=== PATIENT | male | born 1980 | race Asian ===

== ENCOUNTER 2016-05-17 02:45 | Inpatient (IN) | payer BC ==
[2016-05-17] VITALS (7 sets, daily range): BP systolic 130–139; BP diastolic 77–90
[~2016-05-17] VITALS: Ht 167.6 cm; Wt 63.0 kg
[~2016-05-17 02:45] MED LIST: KEFLEX500 MG ORAL; NKM
[2016-05-17] MEDS ORDERED: Famotidine 20 MG/ 2ML VIAL IVP ONE (03:15)
--- NOTE | 2016-05-17 03:28 | Emergency Room Report ---
History of Present Illness General Chief Complaint: Abdominal Pain Source: Patient Present Illness HPI Patient is a 36-year-old male who presented after increased epigastric and left- sided upper back pain. The patient reported having pain increased since 9 PM. The pain did radiate to his back. Patient had prior history of gastroesophageal reflux disease. He stated he took some antacid without any relief. The pain is sharp in nature. He denied any black or bloody stool he denied any vomiting or diarrhea. He reported having some nausea. He denied recent alcohol use. Allergies: Coded Allergies: No Known Allergies (Unverified , 10/22/15) Patient History Past Medical History: see triage record Reviewed Nursing Documentation: PMH: Agreed, PSxH: Agreed Nursing Documentation-PMH Hx Gastrointestinal Problems: Yes - inguinal hernia (left) Review of Systems All Other Systems: negative except mentioned in HPI Physical Exam Vital Signs Date Time Temp Pulse Resp B/P Pulse Ox O2 Delivery O2 Flow Rate FiO2 05/17/16 02:50 97.3 75 18 125/82 100 Room Air Sp02 EP Interpretation: reviewed, normal General Appearance: normal inspection, alert, GCS 15, non-toxic, mild distress Head: atraumatic ENT: normal ENT inspection, hearing grossly normal, normal voice Neck: normal inspection, full range of motion, supple, no bony tend Respiratory: normal inspection, lungs clear, normal breath sounds, no respiratory distress, no retraction, no wheezing Cardiovascular #1: regular rate, rhythm, no edema Gastrointestinal: normal inspection, normal bowel sounds, soft, no guarding, no hernia, tenderness - epigastric Genitourinary: no CVA tenderness Musculoskeletal: normal inspection, back normal, normal range of motion Neurologic: normal inspection, alert, oriented x3, responsive, head housekeeper III-XII nml as tested, speech normal Psychiatric: normal inspection, judgement/insight normal, mood/affect normal Skin: normal inspection, normal color, no rash Medical Decision Making Diagnostic Impression: Primary Impression: Abdominal pain Additional Impression: Cholecystitis ER Course Patient presented for abdominal pain.Patient presented for abdominal pain. Differential diagnoses included ischemic bowel, appendicitis, perforated viscus , abdominal aortic aneurysm, inferior myocardial infarction, viral gastroenteritis Because of complexity of patient's case laboratory testing and imaging studies were ordered.Patient was given IV pain medication. CT of the abdomen pelvis read by radiology showed a gallbladder stones with wall thickening consistent with cholecystitis. The patient was noted to have a normal white blood count. Patient was given morphine for pain as well as IV Pepcid. The patient started on IV hydration. Laboratory Tests Test 05/17/16 03:15 White Blood Count 10.3 K/UL (4.8-10.8) Red Blood Count 5.54 M/UL (4.70-6.10) Hemoglobin 17.8 G/DL (14.2-18.0) Hematocrit 51.0 % (42.0-52.0) Mean Corpuscular Volume 92 FL (80-99) Mean Corpuscular Hemoglobin 32.1 PG (27.0-31.0) H Mean Corpuscular Hemoglobin Concent 34.8 G/DL (32.0-36.0) Red Cell Distribution Width 10.8 % (11.6-14.8) L Platelet Count 295 K/UL (150-450) Mean Platelet Volume 6.5 FL (6.5-10.1) Neutrophils (%) (Auto) % (45.0-75.0) Lymphocytes (%) (Auto) % (20.0-45.0) Monocytes (%) (Auto) % (1.0-10.0) Eosinophils (%) (Auto) % (0.0-3.0) Basophils (%) (Auto) % (0.0-2.0) Urine Color Yellow Urine Appearance Clear Urine pH 8 (4.5-8.0) Urine Specific [place] 1.015 (1.005-1.035) Urine Protein Negative (NEGATIVE) Urine Glucose (UA) 1+ (NEGATIVE) H Urine Ketones 1+ (NEGATIVE) H Urine Occult Blood Negative (NEGATIVE) Urine Nitrite Negative (NEGATIVE) Urine Bilirubin Negative (NEGATIVE) Urine Urobilinogen Normal MG/DL (0.0-1.0) Urine Leukocyte Esterase Negative (NEGATIVE) Sodium Level 137 mEQ/L (135-145) Potassium Level 3.9 mEQ/L (3.4-4.9) Chloride Level 97 mEQ/L (98-107) L Carbon Dioxide Level 23 mEQ/L (20-30) Anion Gap 17 (5-15) H Blood Urea Nitrogen 12 mg/dL (7-23) Creatinine 0.8 mg/dL (0.7-1.2) Estimate Glomerular Filtration Rate > 60 mL/min (>60) Glucose Level 168 mg/dL (74-106) H Calcium Level 9.6 mg/dL (8.6-10.2) Total Bilirubin 0.6 mg/dL (0.0-1.2) Aspartate Amino Transferase (AST) 24 U/L (5-40) Alanine Aminotransferase (ALT) 38 U/L (3-41) Alkaline Phosphatase 84 U/L (40-129) Troponin I < 0.30 ng/mL (<=0.30) Total Protein 8.0 g/dL (6.6-8.7) Albumin 4.7 g/dL (3.5-5.2) Globulin 3.3 g/dL Albumin/Globulin Ratio 1.4 (1.0-2.7) Lipase 40 U/L (< 60) Urine Opiates Screen Negative (NEGATIVE) Urine Barbiturates Screen Negative (NEGATIVE) Phencyclidine (PCP) Screen Negative (NEGATIVE) Urine Amphetamines Screen Negative (NEGATIVE) Urine Benzodiazepines Screen Negative (NEGATIVE) Urine Cocaine Screen Negative (NEGATIVE) Urine Marijuana (THC) Screen Negative (NEGATIVE) EKG Diagnostic Results Rate: normal - 75 Rhythm: NSR ST Segments: no acute changes Last Vital Signs Date Time Temp Pulse Resp B/P Pulse Ox O2 Delivery O2 Flow Rate FiO2 05/17/16 02:50 97.3 75 18 125/82 100 Room Air Status: unchanged Disposition: ADMITTED INPATIENT Condition: Kyrie Lucas May 17, 2016 03:28
[2016-05-17 03:38] LABS: APPEARANCE,URINE CLEAR; KETONES,URINE 1+ (NEGATIVE); LEUKOCYTE ESTERASE ,URINE NEGATIVE (NEGATIVE); NITRITE,URINE NEGATIVE (NEGATIVE); PH,URINE 8 (4.5-8.0); PROTEIN,URINE NEGATIVE (NEGATIVE); UROBILINOGEN,URINE NORMAL MG/DL (0.0-1.0)
[2016-05-17 03:41] LABS: MEAN CORPUSCULAR HEMOGLOBIN 32.1 PG (27.0-31.0); MEAN CORPUSCULAR HGB CONC 34.8 G/DL (32.0-36.0); MEAN CORPUSCULAR VOLUME 92 FL (80-99); MEAN PLATELET VOLUME 6.5 FL (6.5-10.1); PLATELET COUNT 295 K/UL (150-450); RED BLOOD COUNT 5.54 M/UL (4.70-6.10); RED CELL DISTRIBUTION WIDTH 10.8 % (11.6-14.8); WHITE BLOOD COUNT 10.3 K/UL (4.8-10.8)
[2016-05-17 03:48] LABS: TROPONIN I < 0.30 ng/mL (<=0.30)
[2016-05-17 03:52] LABS: ALANINE AMINOTRANSFERASE 38 U/L (3-41); ALBUMIN/GLOBULIN RATIO 1.4 (1.0-2.7); ANION GAP 17 (5-15); ASPARTATE AMINO TRANSFERASE 24 U/L (5-40); CALCIUM 9.6 mg/dL (8.6-10.2); CARBON DIOXIDE 23 mEQ/L (20-30); CHLORIDE 97 mEQ/L (98-107); CREATININE 0.8 mg/dL (0.7-1.2); GLOMERULAR FILTRATION RATE > 60 mL/min (>60); HEMOLYSIS 8; LIPASE 40 U/L (< 60); POTASSIUM 3.9 mEQ/L (3.4-4.9); SODIUM 137 mEQ/L (135-145)
[2016-05-17] MEDS ORDERED: Morphine Sulfate 4mg/ml Inj IVP ONE (04:15)
[2016-05-17] MEDS ORDERED: cefTRIAXone 1 GM in NS 55 ML IVPB ONE (05:45)
[2016-05-17] MEDS ORDERED: metroNIDAZOLE 500mg 100 ML IVPB ONE (05:45)
[2016-05-17] MEDS ORDERED: Mylanta II UD 30ml ORAL PRN (06:45)
[2016-05-17] MEDS ORDERED: Miralax 17gm pkt ORAL PRN (06:45)
[2016-05-17] MEDS ORDERED: Nitroglycerin Subl 0.4mg tab (Bottle Of 25) SL PRN (06:45)
[2016-05-17] MEDS ORDERED: D5 1/2NS 1,000 ML IV SCH (08:00)
[2016-05-17] MEDS: Heparin 5000 units/ml inj SUBQ SCH ×2 (09:00→21:04)
--- NOTE | 2016-05-17 09:07 | Diagnostic Imaging Report ---
Indication: Abdominal pain Technique: CT of the abdomen and pelvis utilizing automated exposure control with intravenous contrast. Venous scanning performed. CT dose: Total DLP 578 mGycm; CTDI vol 13.2 mGy Comparison: None Findings: Liver, adrenal glands, spleen and pancreas are unremarkable. Gallstones are present with gallbladder wall thickening. There is a tiny right renal cyst. The small bowel loops are normal in caliber. The appendix is normal. There is no free intraperitoneal fluid or air. Abdominal aorta is normal in caliber. There is no bulky adenopathy. Osseous structures demonstrate no acute abnormality. Impression: Cholelithiasis with gallbladder wall thickening. Correlation recommended for cholecystitis. Tiny right renal cyst. Normal appendix. The CT scanner at [facility] is accredited by the [employer] and the scans are performed using protocols designed to limit radiation exposure to as low as reasonably achievable to attain images of sufficient resolution adequate for diagnostic evaluation.
[2016-05-17 11:29] LABS: INR 1.1 (0.9-1.1); PROTHROMBIN TIME 10.8 SEC (9.30-11.50)
--- NOTE | 2016-05-17 12:29 | General Progress Note ---
Progress Note Progress Note Chart reviewed, pt examined, consult dictated. Impression: cholelithiasis with thickening of gb wall, normal LFTs and CBC. We will obtain an abdominal ultrasound and HIDA scan today. Parish Amato MD May 17, 2016 12:29
--- NOTE | 2016-05-17 12:58 | History and Physical ---
History of Present Illness General Date patient seen: May 17, 2016 Time patient seen: 12:30 Reason for Hospitalization: Abdominal Pain Present Illness HPI 36 y/old male presented with abdominal pain, started last nigth, get worse, pain radiated to the back, mainly concentrated in epigastric area, 7/10 on a scale 1 to 10, no prior episodes in the past + associated nausea, no vomiting no diarrhea denies hematochezia, melena, hematemesis denies fever, chills denies trauma or injury to the abdomen CT A/P done in ER and revealed cholelithiasis with gallbladder wall thickening. workup in ER revealed no leukocytosis, stable LFT patient was admitted for further workup Allergies: Coded Allergies: No Known Allergies (Unverified , 10/22/15) Medication History Scheduled Cephalexin* (Keflex*), 500 MG ORAL Q6H No Known Medications* (NKM - No Known Medications*), 0 ., (Reported) Patient History History Provided By: Patient Healthcare decision maker Resuscitation status Advanced Directive on File Past Medical/Surgical History Past Medical/Surgical History: (1) Cellulitis and abscess of finger, unspecified Review of Systems Constitutional: Reports: no symptoms Eye: Reports: no symptoms ENT: Reports: no symptoms Respiratory: Reports: no symptoms Cardiovascular: Reports: no symptoms Gastrointestinal: Reports: see HPI Genitourinary: Reports: other - hx of R inguinal hernia repair, + L inguinal hernia, no surgery planned yet Musculoskeletal: Reports: no symptoms Skin: Reports: no symptoms Psychiatric: Reports: no symptoms Neurological: Reports: no symptoms Endocrine: Reports: no symptoms Hematologic/Lymphatic: Reports: no symptoms Physical Exam General Appearance: WD/WN, no apparent distress, alert Lines, tubes and drains: peripheral HEENT: normocephalic, atraumatic, anicteric, mucous membranes moist Neck: non-tender, supple, normal inspection Respiratory/Chest: lungs clear, no respiratory distress, no accessory muscle use Cardiovascular/Chest: normal peripheral pulses, normal rate, regular rhythm, no JVD Abdomen: normal bowel sounds, non tender, soft Extremities: normal range of motion, non-tender, normal inspection, no calf tenderness Skin Exam: normal pigmentation, warm/dry Neurologic: secretary bookkeeper II-XII grossly normal, no motor/sensory deficits, alert, oriented x 3, responsive, normal mood/affect Musculoskeletal: normal muscle bulk Last 24 Hour Vital Signs Date Time Temp Pulse Resp B/P Pulse Ox O2 Delivery O2 Flow Rate FiO2 05/17/16 09:27 98.4 85 18 134/81 100 Room Air 05/17/16 08:46 98.4 85 18 134/81 100 Room Air 05/17/16 06:38 98.4 87 18 130/78 100 Room Air 05/17/16 05:30 98.0 85 16 131/77 100 Room Air 05/17/16 04:54 97.3 05/17/16 03:04 97.3 77 24 139/87 100 Room Air 05/17/16 02:50 97.3 75 18 125/82 100 Room Air Intake and Output 05/16/16 05/17/16 19:00 07:00 Intake Total 1055 ml Balance 1055 ml Intake IV Total 1055 ml # Voids 1 Laboratory Tests Test 05/17/16 03:15 05/17/16 10:45 White Blood Count 10.3 K/UL (4.8-10.8) Red Blood Count 5.54 M/UL (4.70-6.10) Hemoglobin 17.8 G/DL (14.2-18.0) Hematocrit 51.0 % (42.0-52.0) Mean Corpuscular Volume 92 FL (80-99) Mean Corpuscular Hemoglobin 32.1 PG (27.0-31.0) H Mean Corpuscular Hemoglobin Concent 34.8 G/DL (32.0-36.0) Red Cell Distribution Width 10.8 % (11.6-14.8) L Platelet Count 295 K/UL (150-450) Mean Platelet Volume 6.5 FL (6.5-10.1) Neutrophils (%) (Auto) % (45.0-75.0) Lymphocytes (%) (Auto) % (20.0-45.0) Monocytes (%) (Auto) % (1.0-10.0) Eosinophils (%) (Auto) % (0.0-3.0) Basophils (%) (Auto) % (0.0-2.0) Urine Color Yellow Urine Appearance Clear Urine pH 8 (4.5-8.0) Urine Specific [place] 1.015 (1.005-1.035) Urine Protein Negative (NEGATIVE) Urine Glucose (UA) 1+ (NEGATIVE) H Urine Ketones 1+ (NEGATIVE) H Urine Occult Blood Negative (NEGATIVE) Urine Nitrite Negative (NEGATIVE) Urine Bilirubin Negative (NEGATIVE) Urine Urobilinogen Normal MG/DL (0.0-1.0) Urine Leukocyte Esterase Negative (NEGATIVE) Sodium Level 137 mEQ/L (135-145) Potassium Level 3.9 mEQ/L (3.4-4.9) Chloride Level 97 mEQ/L (98-107) L Carbon Dioxide Level 23 mEQ/L (20-30) Anion Gap 17 (5-15) H Blood Urea Nitrogen 12 mg/dL (7-23) Creatinine 0.8 mg/dL (0.7-1.2) Estimat Glomerular Filtration Rate > 60 mL/min (>60) Glucose Level 168 mg/dL (74-106) H Calcium Level 9.6 mg/dL (8.6-10.2) Total Bilirubin 0.6 mg/dL (0.0-1.2) Aspartate Amino Transf (AST/SGOT) 24 U/L (5-40) Alanine Aminotransferase (ALT/SGPT) 38 U/L (3-41) Alkaline Phosphatase 84 U/L (40-129) Troponin I < 0.30 ng/mL (<=0.30) Total Protein 8.0 g/dL (6.6-8.7) Albumin 4.7 g/dL (3.5-5.2) Globulin 3.3 g/dL Albumin/Globulin Ratio 1.4 (1.0-2.7) Lipase 40 U/L (< 60) Urine Opiates Screen Negative (NEGATIVE) Urine Barbiturates Screen Negative (NEGATIVE) Phencyclidine (PCP) Screen Negative (NEGATIVE) Urine Amphetamines Screen Negative (NEGATIVE) Urine Benzodiazepines Screen Negative (NEGATIVE) Urine Cocaine Screen Negative (NEGATIVE) Urine Marijuana (THC) Screen Negative (NEGATIVE) Prothrombin Time 10.8 SEC (9.30-11.50) Prothromb Time International Ratio 1.1 (0.9-1.1) Activated Partial Thromboplast Time 29 SEC (23-33) Height (Feet): 5 Height (Inches): 8.00 Weight (Pounds): 140 Medications Current Medications Medications (Trade) Dose Ordered Sig/[place] Route PRN Reason Start Time Stop Time Status Last Admin Dose Admin Acetaminophen (Tylenol) 650 mg Q4H PRN ORAL fever 05/17/16 06:45 06/16/16 06:44 Al Hydroxide/Mg Hydroxide (Mylanta II) 30 ml Q6H PRN ORAL dyspepsia 05/17/16 06:45 06/16/16 06:44 Dextrose STAT PRN IV Hypoglycemia 05/17/16 06:45 06/16/16 06:44 Dextrose/Sodium Chloride (D5 0.45% NS) 1,000 ml @ 75 mls/hr [id number] IV 05/17/16 08:00 06/16/16 07:59 05/17/16 11:42 Diphenhydramine HCl (Benadryl) 25 mg Q6H PRN ORAL Itching/Pruritis 05/17/16 06:45 06/16/16 06:44 Heparin Sodium (Porcine) (Heparin 5000 units/ml) 5,000 units EVERY 12 HOURS SUBQ 05/17/16 09:00 06/16/16 08:59 Morphine Sulfate (Morphine Sulfate) 2 mg Q4H PRN IVP severe Pain (Pain Scale 7-10) 05/17/16 06:45 05/24/16 06:44 Nitroglycerin (Ntg) 0.4 mg Q5M X 3 DOSES PRN SL Prn Chest Pain 05/17/16 06:45 06/16/16 06:44 Ondansetron HCl (Zofran) 4 mg Q6H PRN IVP Nausea & Vomiting 05/17/16 06:45 06/16/16 06:44 Piperacillin Sod/ Tazobactam Sod/ Sodium Chloride (Zosyn/Sodium Chloride) 110 ml @ 27.5 mls/hr EVERY 8 HOURS IVPB 05/17/16 14:00 05/24/16 13:59 Polyethylene Glycol (Miralax) 17 gm HSPRN PRN ORAL Constipation 05/17/16 06:45 06/16/16 06:44 Temazepam (Restoril) 15 mg HSPRN PRN ORAL Insomnia 05/17/16 06:45 05/24/16 06:44 Assessment/Plan Assessment/Plan ASSESSMENT Cholelithiasis Gallbladder wall thickening. r/o cholecystitis abdominal pain PLAN OF CARE MS floor IVF NPO CT A/P consistent with cholelithiasis with gallbladder wall thickening. surgery consult appreciated per surgery - abdominal US and HIDA scan empiric abx LFT, stable , no leucocytosis pain controlled no nausea DVT , GI prophylaxis case discussed and evaluated by supervising physician Mahad (Ange),Georgina KINGSLEY May 17, 2016 12:58
[2016-05-17] MEDS: Piperacillin/Tazobactam 3.375 GM in NS 110 ML IVPB SCH ×2 (15:04→21:16)
[2016-05-17] MEDS: Morphine Sulfate 2mg/ml Inj IVP PRN (20:48)
--- NOTE | 2016-05-17 21:57 | Consultation ---
DATE OF CONSULTATION: 05/17/2016 SURGICAL CONSULTATION REASON FOR CONSULTATION: Abdominal pain, gallstones. HISTORY OF PRESENT ILLNESS: This 36-year-old, [place] male developed problems with upper abdominal pain last night at 9 p.m. The pain was accompanied by nausea. He denied any symptoms of fever, chills, or diarrhea. He denied any similar pain episodes in the past. A CT scan of the abdomen taken in the emergency room revealed some thickening of the gallbladder wall along with gallstones. PAST MEDICAL HISTORY: None. PAST SURGICAL HISTORY: Previous surgery - right inguinal hernia repair at age 26. The patient was told recently that he has a left inguinal hernia as well. ALLERGIES: None known. MEDICATIONS: Multivitamins and fish oil. SOCIAL HISTORY: Tobacco, none. Alcohol, none. Occupation, RN. FAMILY HISTORY: The patient's father was diabetic and had gallstones. The patient's mother has hypertension. REVIEW OF SYSTEMS: Essentially negative. There is no history of asthma or angina. He denies any history of hepatitis. PHYSICAL EXAMINATION: GENERAL: A well-developed, well-nourished, slender, male, in no acute distress. VITAL SIGNS: Temperature 98.4, blood pressure 134/81, pulse 85, respirations 18. HEENT: Normocephalic. Pupils are equal and reactive to light. There was no scleral icterus. NECK: Supple without adenopathy. LUNGS: Clear. HEART: Regular rhythm without murmurs or gallops. ABDOMEN: Soft. There were no palpable masses. There was no tenderness. There is a healed right inguinal scar. EXTREMITIES: No clubbing, cyanosis, or edema. Peripheral pulses are intact. LABORATORY STUDIES: CBC showed a white blood count of 10,300, hemoglobin 17.8 g%, hematocrit 51%, and platelet count 295,000. Clinical chemistry showed a sodium of 137, potassium 3.9, chloride 97, bicarbonate 23, BUN 12, creatinine 0.8, glucose 168 total bilirubin 0.6, SGOT 38, SGPT 24, alkaline phosphatase 84, and lipase is normal at 40. Coagulation studies showed a prothrombin time of 10.8 seconds with an INR of 1.1 and PTT 29. Urinalysis was negative. CT scan of the abdomen showed gallstones with gallbladder wall thickening. The appendix is normal. IMPRESSION: Recent abdominal pain. Cholelithiasis on CT scan with possible thickening of the gallbladder wall, rule out cholecystitis. PLAN: We will obtain an ultrasound of the abdomen as well as a HIDA scan. If the HIDA does not visualize the gallbladder, we will proceed with a laparoscopic cholecystectomy during this hospitalization. Parish Amato M.D. DR: ELIJAH JOB#: [id number] CC:
[2016-05-17] MEDS: D5 1/2NS 1,000 ML IV SCH (22:46)
[2016-05-18] VITALS: BP 135/86
[2016-05-18] MEDS: D5 1/2NS 1,000 ML IV SCH ×3 (01:05→21:24)
[2016-05-18 04:00] VITALS: BP 118/75
[2016-05-18] MEDS: Piperacillin/Tazobactam 3.375 GM in NS 110 ML IVPB SCH ×3 (06:10→21:40)
[2016-05-18 08:00] VITALS: BP 126/81
[2016-05-18] MEDS ORDERED: D5 1/2NS 1,000 ML IV SCH (08:00)
[2016-05-18 08:06] LABS: BASOPHILS % (AUTO) 1.1 % (0.0-2.0); EOSINOPHILS % (AUTO) 1.1 % (0.0-3.0); LYMPHOCYTES % (AUTO) 15.9 % (20.0-45.0); MEAN CORPUSCULAR HEMOGLOBIN 32.4 PG (27.0-31.0); MEAN CORPUSCULAR HGB CONC 33.9 G/DL (32.0-36.0); MEAN CORPUSCULAR VOLUME 96 FL (80-99); MONOCYTES % (AUTO) 9.4 % (1.0-10.0); NEUTROPHILS % (AUTO) 72.5 % (45.0-75.0); PLATELET COUNT 232 K/UL (150-450); RED BLOOD COUNT 4.83 M/UL (4.70-6.10); RED CELL DISTRIBUTION WIDTH 10.8 % (11.6-14.8); WHITE BLOOD COUNT 9.7 K/UL (4.8-10.8)
[2016-05-18 08:51] LABS: ALANINE AMINOTRANSFERASE 29 U/L (3-41); ALBUMIN/GLOBULIN RATIO 1.3 (1.0-2.7); AMYLASE 89 U/L (10-110); ANION GAP 14 (5-15); ASPARTATE AMINO TRANSFERASE 20 U/L (5-40); CARBON DIOXIDE 23 mEQ/L (20-30); CHLORIDE 102 mEQ/L (98-107); CREATININE 0.9 mg/dL (0.7-1.2); GLOMERULAR FILTRATION RATE > 60 mL/min (>60); LIPASE 25 U/L (< 60); SODIUM 139 mEQ/L (135-145); TOTAL PROTEIN 6.9 g/dL (6.6-8.7)
[2016-05-18 08:52] LABS: HEMOLYSIS 5
[2016-05-18] MEDS: Heparin 5000 units/ml inj SUBQ SCH ×2 (09:00→21:00)
--- NOTE | 2016-05-18 09:00 | Diagnostic Imaging Report ---
Indication: Abdominal pain Technique: Ultrasound of the abdomen. Comparison: CT abdomen and pelvis from earlier the same day Findings: The pancreas is incompletely visualized. Visualized portions are unremarkable. There is mild increased echogenicity of the liver. No focal liver lesions are identified. Visualized portions of the main portal vein and the hepatic veins are grossly unremarkable although incompletely evaluated. Gallstones are present. Gallbladder wall is thickened measuring 1.1 cm with comet tail artifact. Common bile duct measures 6 mm. Bilateral kidneys demonstrate normal echogenicity. Right renal cyst measures 0.9 cm. There is no hydronephrosis. No echogenic renal stones are identified. The spleen is normal in size and echogenicity. The visualized aorta is normal in caliber. Visualized portions of the inferior vena cava are unremarkable. Impression: Cholelithiasis with gallbladder wall thickening measuring 1.1 cm. Comet tail artifact of the gallbladder wall. Adenomyomatosis could have this appearance. Cholecystitis not excluded. Neoplasm considered unlikely but not excluded. Right renal cyst. Mild fatty infiltration of the liver.
--- NOTE | 2016-05-18 09:40 | Pulmonology Progress Note ---
Assessment/Plan Assessment/Plan ASSESSMENT Cholelithiasis Gallbladder wall thickening. r/o cholecystitis abdominal pain PLAN OF CARE MS floor IVF NPO CT A/P consistent with cholelithiasis with gallbladder wall thickening. surgery consult appreciated per surgery - abdominal US and HIDA scan done Abd US - Cholelithiasis with gallbladder wall thickening measuring 1.1 cm. Cholecystitis not excluded. HIDA results pending empiric abx LFT, stable , no leucocytosis pain controlled no nausea DVT , GI prophylaxis depending on the results of HIDA if no visualization of GB, then lap chon if HIDA negative, then will dc case discussed and evaluated by supervising physician Subjective Allergies: Coded Allergies: No Known Allergies (Unverified , 10/22/15) Subjective feeling better no abdominal pain, no n/v/ seen and evaluated by surgery LFT and bili stable, no leukocytosis, afebrile Objective Last 24 Hour Vital Signs Date Time Temp Pulse Resp B/P Pulse Ox O2 Delivery O2 Flow Rate FiO2 05/18/16 04:00 98.4 77 21 118/75 100 Room Air 05/18/16 00:00 98.2 72 19 135/86 98 Room Air 05/17/16 21:18 97.7 05/17/16 20:00 97.7 88 15 136/90 97 Room Air 05/17/16 16:01 95.5 76 14 131/80 98 Room Air 05/17/16 12:00 96.0 85 16 133/78 98 Room Air Intake and Output 05/17/16 05/18/16 19:00 07:00 Intake Total 110.0 ml 957.5 ml Output Total 500 ml Balance 110.0 ml 457.5 ml Intake IV Total 110.0 ml 957.5 ml Output Urine Total 500 ml # Voids 4 Objective General Appearance: WD/WN, no apparent distress, alert Lines, tubes and drains: peripheral HEENT: normocephalic, atraumatic, anicteric, mucous membranes moist Neck: non-tender, supple, normal inspection Respiratory/Chest: lungs clear, no respiratory distress, no accessory muscle use Cardiovascular/Chest: normal peripheral pulses, normal rate, regular rhythm, no JVD Abdomen: normal bowel sounds, non tender, soft Extremities: normal range of motion, non-tender, normal inspection, no calf tenderness Skin Exam: normal pigmentation, warm/dry Neurologic: route manager II-XII grossly normal, no motor/sensory deficits, alert, oriented x 3, responsive, normal mood/affect Musculoskeletal: normal muscle bulk Laboratory Tests 05/17/16 10:45: Prothrombin Time 10.8, Prothromb Time International Ratio 1.1, Activated Partial Thromboplast Time 29 05/18/16 06:45: Activated Partial Thromboplast Time 31, White Blood Count 9.7, Red Blood Count 4.83, Hemoglobin 15.7, Hematocrit 46.2, Mean Corpuscular Volume 96, Mean Corpuscular Hemoglobin 32.4H, Mean Corpuscular Hemoglobin Concent 33.9, Red Cell Distribution Width 10.8L, Platelet Count 232, Mean Platelet Volume 6.0L, Neutrophils (%) (Auto) 72.5, Lymphocytes (%) (Auto) 15.9L, Monocytes (%) (Auto) 9.4, Eosinophils (%) (Auto) 1.1, Basophils (%) (Auto) 1.1, Sodium Level 139, Potassium Level 4.0, Chloride Level 102, Carbon Dioxide Level 23, Anion Gap 14, Blood Urea Nitrogen 6L, Creatinine 0.9, Estimat Glomerular Filtration Rate > 60 , Glucose Level 125H, Calcium Level 9.0, Total Bilirubin 1.0, Aspartate Amino Transf (AST/SGOT) 20, Alanine Aminotransferase (ALT/SGPT) 29, Alkaline Phosphatase 58, Total Protein 6.9, Albumin 3.9, Globulin 3.0, Albumin/Globulin Ratio 1.3, Amylase Level 89, Lipase 25 Current Medications Medications (Trade) Dose Ordered Sig/[place] Route PRN Reason Start Time Stop Time Status Last Admin Dose Admin Acetaminophen (Tylenol) 650 mg Q4H PRN ORAL fever 05/17/16 06:45 06/16/16 06:44 Al Hydroxide/Mg Hydroxide (Mylanta II) 30 ml Q6H PRN ORAL dyspepsia 05/17/16 06:45 06/16/16 06:44 Dextrose STAT PRN IV Hypoglycemia 05/17/16 06:45 06/16/16 06:44 Dextrose/Sodium Chloride (D5 0.45% NS) 1,000 ml @ 100 mls/hr Q10H IV 05/17/16 22:45 06/16/16 22:44 05/18/16 01:05 Diphenhydramine HCl (Benadryl) 25 mg Q6H PRN ORAL Itching/Pruritis 05/17/16 06:45 06/16/16 06:44 Heparin Sodium (Porcine) (Heparin 5000 units/ml) 5,000 units EVERY 12 HOURS SUBQ 05/17/16 09:00 06/16/16 08:59 05/17/16 21:04 Morphine Sulfate (Morphine Sulfate) 2 mg Q4H PRN IVP severe Pain (Pain Scale 7-10) 05/17/16 06:45 05/24/16 06:44 05/17/16 20:48 Nitroglycerin (Ntg) 0.4 mg Q5M X 3 DOSES PRN SL Prn Chest Pain 05/17/16 06:45 06/16/16 06:44 Ondansetron HCl (Zofran) 4 mg Q6H PRN IVP Nausea & Vomiting 05/17/16 06:45 06/16/16 06:44 Piperacillin Sod/ Tazobactam Sod 3.375 gm/Sodium Chloride 110 ml @ 27.5 mls/hr EVERY 8 HOURS IVPB 05/17/16 14:00 05/24/16 13:59 05/18/16 06:10 Polyethylene Glycol (Miralax) 17 gm HSPRN PRN ORAL Constipation 05/17/16 06:45 06/16/16 06:44 Temazepam (Restoril) 15 mg HSPRN PRN ORAL Insomnia 05/17/16 06:45 05/24/16 06:44 Mahad [facility] centerGeorgina Martínez NP May 18, 2016 09:40
--- NOTE | 2016-05-18 11:25 | General Progress Note ---
Progress Note Progress Note Afebrile. Pt reports less abdominal pain, no nausea. Abdomen is soft. The DAVID confirms the presence of gallstones with thickening of the fundus of the gallbladder, there is no ductal dilatation. The HIDA scan shows a patent cystic duct. LFTs and CBC are wnl. We will try to schedule the pt for a laparoscopic cholecystectomy tomorrow if feasible. We will start a clear liquid diet and hopefully advance to a low fat diet. Parish Amato MD May 18, 2016 11:25
[2016-05-18 12:00] VITALS: BP 141/86
[2016-05-18] MEDS ORDERED: D5 1/2NS 1000ml IV ONE (15:16)
[2016-05-18] MEDS ORDERED: Tubing IV Secondary IV ONE (15:16)
[2016-05-18 16:00] VITALS: BP 118/77
[2016-05-18 20:00] VITALS: BP 123/77
[2016-05-18] MEDS: Morphine Sulfate 2mg/ml Inj IVP PRN (21:27)
[2016-05-19] VITALS (16 sets, daily range): BP systolic 102–148; BP diastolic 71–98
--- NOTE | 2016-05-19 02:08 | Consultation ---
DATE OF CONSULTATION: 05/18/2016 CHIEF COMPLAINT: Abdominal pain. HISTORY OF PRESENT ILLNESS: This is a very pleasant 36-year-old male, who presented to the hospital with complaint of epigastric and left-sided abdominal pain radiating to the back. Since admission, the patient had multiple imaging studies suspicious for cholecystitis, although the patient did not have any leukocytosis and no obvious fever. Today, the patient states the pain has resolved. He does not have any other pain. PAST MEDICAL HISTORY: None. MEDICATIONS: None. ALLERGIES: None. SOCIAL HISTORY: The patient denies any tobacco, alcohol, or IV drug abuse. FAMILY HISTORY: Noncontributory. REVIEW OF SYSTEMS: A 10-point review of system was performed and pertinent positives in history of present illness. PHYSICAL EXAMINATION: VITAL SIGNS: Temperature 98.4 degrees, pulse 78, respirations 21, and blood pressure 118/75. HEENT: Normocephalic and atraumatic. Pale conjunctivae. Sclerae anitcteric. NECK: Supple. No lymphadenopathy. CARDIOVASCULAR: Regular rhythm. Plus S1 and S2. LUNGS: Clear breath sounds bilaterally. ABDOMEN: Bowel sounds are present. Soft and nontender. No rebound. No guarding. No peritoneal signs. EXTREMITIES: No cyanosis. No clubbing. No edema. LABORATORY DATA: White count is 9.7, hemoglobin 16, hematocrit 46, and platelet count is 232,000. Chem-7, sodium 139, potassium 4.0, BUN is 6, creatinine 0.9, and glucose is 125. IMAGING STUDIES: The patient had an abdominal ultrasound, which showed cholelithiasis with gallbladder wall thickening of 1.1 cm, adenomyomatosis could have this appearance, cholecystitis not excluded, neoplasm considered unlikely, but not excluded. The patient also had evidence of fatty infiltration of the liver. CT of the abdomen and pelvis showed cholelithiasis with gallbladder wall thickening. Correlation recommended for cholecystitis, tiny right renal cyst. The patient had normal appendix. HIDA scan was done, results are pending. ASSESSMENT AND PLAN: This is a 36-year-old male with abdominal pain without any fever or leukocytosis, evidence of gallstones, and gallbladder wall thickening. The patient's pending HIDA scan results to be documented. Also, the patient has been followed by surgeon. There is a questionable appendix and cholecystectomy. Our plan will be to see the patient if there is no plan for surgery today. Follow with the surgical recommendations. Willy Molina M.D. DR: TJ JOB#: [id number] CC:
[2016-05-19] MEDS: Piperacillin/Tazobactam 3.375 GM in NS 110 ML IVPB SCH ×3 (05:29→21:54)
[2016-05-19 07:33] LABS: BASOPHILS % (AUTO) 0.7 % (0.0-2.0); EOSINOPHILS % (AUTO) 3.2 % (0.0-3.0); LYMPHOCYTES % (AUTO) 19.8 % (20.0-45.0); MEAN CORPUSCULAR HEMOGLOBIN 34.6 PG (27.0-31.0); MEAN CORPUSCULAR VOLUME 96 FL (80-99); MEAN PLATELET VOLUME 5.6 FL (6.5-10.1); MONOCYTES % (AUTO) 11.5 % (1.0-10.0); NEUTROPHILS % (AUTO) 64.9 % (45.0-75.0); PLATELET COUNT 208 K/UL (150-450); RED BLOOD COUNT 4.52 M/UL (4.70-6.10); RED CELL DISTRIBUTION WIDTH 10.7 % (11.6-14.8); WHITE BLOOD COUNT 8.9 K/UL (4.8-10.8)
[2016-05-19] MEDS: D5 1/2NS 1,000 ML IV SCH ×2 (07:48→23:30)
[2016-05-19 08:00] LABS: ALANINE AMINOTRANSFERASE 28 U/L (3-41); ALBUMIN/GLOBULIN RATIO 1.3 (1.0-2.7); ANION GAP 11 (5-15); ASPARTATE AMINO TRANSFERASE 18 U/L (5-40); CALCIUM 9.1 mg/dL (8.6-10.2); CARBON DIOXIDE 28 mEQ/L (20-30); CHLORIDE 102 mEQ/L (98-107); CREATININE 0.9 mg/dL (0.7-1.2); GLOMERULAR FILTRATION RATE > 60 mL/min (>60); HEMOLYSIS 7; POTASSIUM 3.8 mEQ/L (3.4-4.9); SODIUM 141 mEQ/L (135-145)
[2016-05-19] MEDS: Heparin 5000 units/ml inj SUBQ SCH ×3 (09:00→22:00)
[2016-05-19] MEDS ORDERED: Bupivacaine w/Epi 0.25% 30ml Vial INJ ONE (10:12)
[2016-05-19] MEDS ORDERED: Isovue-M 300 INJ ONE (10:12)
--- NOTE | 2016-05-19 10:17 | Pre-Procedure Note/Attestation ---
Pre-Procedure Note/Attestation Complete Prior to Procedure Procedure Narrative: laproscopic cholecystectomy, possible open, possible cholangiogram Indications for Procedure Pre-Operative Diagnosis: acute cholecystitisi Attestation I attest that I discussed the nature of the procedure; its benefits; risks and complications; and alternatives (and the risks and benefits of such alternatives ), prior to the procedure, with the patient (or the patient's legal account executive sales representative). I attest that, if there was a reasonable possibility of needing a blood transfusion, the patient (or the patient's legal account executive sales representative) was given the [facility] standardized written summary, pursuant to the Dwight [place] Blood Safety Act ([place] Health and Safety Code # 1645, as amended). I attest that I re-evaluated the patient just prior to the surgery and that there has been no change in the patient's H&P, except as documented below:none RHONDA MASON May 19, 2016 10:17
[2016-05-19] MEDS ORDERED: Esmolol 100mg/10ml Inj ONE ×2 (10:40→11:00)
[2016-05-19] MEDS ORDERED: Propofol 10mg/ml 100ml btl IV ONE (10:40)
[2016-05-19] MEDS ORDERED: NS Irrig 1000ml ONE (10:40)
[2016-05-19] MEDS ORDERED: Sterile Water Irrig 1000ml IRRIG ONE (10:40)
[2016-05-19] MEDS ORDERED: LR 1000ml ONE (10:40)
[2016-05-19] MEDS ORDERED: Midazolam 2mg/2ml Inj ONE (10:40)
[2016-05-19] MEDS ORDERED: fentaNYL 100 mcg/2 mL IV ONE (10:40)
[2016-05-19] MEDS ORDERED: Zemuron 50mg/5ml Inj IV ONE (10:40)
--- NOTE | 2016-05-19 11:28 | Anethesia Preoperative Eval ---
Anesthesia Pre-op PMH/ROS General Date of Evaluation: May 19, 2016 Time of Evaluation: 10:40 Anesthesiologist: Jessi ASA Score: ASA 1 Mallampati Score Class I : Soft palate, uvula, fauces, pillars visible Class II: Soft palate, uvula, fauces visible Class III: Soft palate, base of uvula visible Class IV: Only hard plate visible Mallampati Classification: Class II Surgeon: Justyn Diagnosis: Cholecystitis Surgical Procedure: Lap Mercedes Family History: no anesthesia problems Allergies: Coded Allergies: No Known Allergies (Unverified , 10/22/15) Medications: see eMAR Past Medical History Cardiovascular: Denies: CAD, HTN, MD, arrhythmia, other, valve dz Pulmonary: Denies: COPD, JAY, asthma, other Gastrointestinal/Genitourinary: Denies: CRI, ESRD, GERD, other Neurologic/Psychiatric: Denies: CVA, TIA, dementia, depression/anxiety, other Endocrine: Denies: DM, hypothyroidism, other, steroids HEENT: Denies: [place] (L), [place] (R), cataract (L), cataract (R), glaucoma, other Hematology/Immune: Denies: DVT, anemia, bleeding disorder, other Musculoskeletal/Integumentary: Denies: DDD, DJD, OA, RA, edema, other PMH Narrative: Denies PSxH Narrative: Right IH Anesthesia Pre-op Phys. Exam Physician Exam Last Vital Signs Date Time Temp Pulse Resp B/P Pulse Ox O2 Delivery O2 Flow Rate FiO2 05/19/16 08:00 97.0 86 20 102/76 99 Room Air Constitutional: NAD Neurologic: CN 2-12 intact Cardiovascular: RRR, no M/R/G Gastrointestinal: S/NT/ND Airway Exam Mallampati Score: Class II MO: full ROM: full Teeth: intact Anesthesia Pre-op A/P Labs Hematology Test 05/19/16 05:25 White Blood Count 8.9 K/UL (4.8-10.8) Red Blood Count 4.52 M/UL (4.70-6.10) L Hemoglobin 15.7 G/DL (14.2-18.0) Hematocrit 43.5 % (42.0-52.0) Mean Corpuscular Volume 96 FL (80-99) Mean Corpuscular Hemoglobin 34.6 PG (27.0-31.0) H Mean Corpuscular Hemoglobin Concent 36.0 G/DL (32.0-36.0) Red Cell Distribution Width 10.7 % (11.6-14.8) L Platelet Count 208 K/UL (150-450) Mean Platelet Volume 5.6 FL (6.5-10.1) L Neutrophils (%) (Auto) 64.9 % (45.0-75.0) Lymphocytes (%) (Auto) 19.8 % (20.0-45.0) L Monocytes (%) (Auto) 11.5 % (1.0-10.0) H Eosinophils (%) (Auto) 3.2 % (0.0-3.0) H Basophils (%) (Auto) 0.7 % (0.0-2.0) Chemistry Test 05/19/16 05:25 Sodium Level 141 mEQ/L (135-145) Potassium Level 3.8 mEQ/L (3.4-4.9) Chloride Level 102 mEQ/L (98-107) Carbon Dioxide Level 28 mEQ/L (20-30) Anion Gap 11 (5-15) Blood Urea Nitrogen 5 mg/dL (7-23) L Creatinine 0.9 mg/dL (0.7-1.2) Estimat Glomerular Filtration Rate > 60 mL/min (>60) Glucose Level 122 mg/dL (74-106) H Calcium Level 9.1 mg/dL (8.6-10.2) Total Bilirubin 0.8 mg/dL (0.0-1.2) Aspartate Amino Transf (AST/SGOT) 18 U/L (5-40) Alanine Aminotransferase (ALT/SGPT) 28 U/L (3-41) Alkaline Phosphatase 61 U/L (40-129) Total Protein 7.0 g/dL (6.6-8.7) Albumin 4.0 g/dL (3.5-5.2) Globulin 3.0 g/dL Albumin/Globulin Ratio 1.3 (1.0-2.7) Risk Assessment & Plan Assessment: Healthy male with cholecystitis Plan: GETA Status Change Before Surgery: No Pre-Antibiotics Drug: Patient is on DIAMANTE Gusman M.D. May 19, 2016 11:28
[2016-05-19] MEDS ORDERED: Meperidine 25mg/ml Inj IV PRN (11:30)
[2016-05-19] MEDS ORDERED: LR 1000ml 1,000 ML IVLG SCH (11:30)
[2016-05-19] MEDS ORDERED: LORazepam Inj 2mg/ml 1ml IV PRN (11:30)
[2016-05-19] MEDS ORDERED: Hydromorphone 0.5mg/0.5ml inj IVP PRN ×2 (11:30→12:15)
--- NOTE | 2016-05-19 11:30 | Immediate Post-Op Evaluation ---
Immediate Post-Op Evalulation Immediate Post-Op Evalulation Procedure: Lap Mercedes Date of Evaluation: May 19, 2016 Time of Evaluation: 12:30 IV Fluids: 925 Estimated Blood Loss: 30 Blood Pressure Systolic: 141 Blood Pressure Diastolic: 90 Pulse Rate: 80 Respiratory Rate: 22 O2 Sat by Pulse Oximetry: 100 Temperature (Fahrenheit): 97.6 Pain Score (1-10): 0 Nausea: No Vomiting: No Complications No complication Patient Status: reacts, patent, extubated, none Hydration Status: adequate Drug: None. Patient is on Zosyn. DIAMANTE PAINTER M.D. May 19, 2016 11:30
[2016-05-19] MEDS ORDERED: Surgicel 4in x 8in TOPIC ONE (11:56)
--- NOTE | 2016-05-19 12:10 | Brief Operative Note ---
Immediate Post Operative Note Operative Note Pre-op Diagnosis: acute cholecystitisi Procedure: laparoscopic cholecystectomy Post-op Diagnosis: same Surgeon: Dilma Network Field Engineer: avril Anesthesiologist: jaspreet Anesthesia: general, local Specimen: yes Complications: none Condition: stable Estimated Blood Loss: minimal Drains: none Implant(s) used?: No RHONDA MASON May 19, 2016 12:10
[2016-05-19] MEDS ORDERED: Norco 5mg/325mg tab ORAL PRN (12:15)
--- NOTE | 2016-05-19 12:24 | GI Progress Note ---
Assessment/Plan Problems: (1) Abdominal pain ICD Codes: R10.9 - Unspecified abdominal pain SNOMED: 97418366, 76172080 (2) Cholecystitis ICD Codes: K81.9 - Cholecystitis, unspecified SNOMED: 94755932, 64174925 Status Narrative Discussed with Dr. Molina. Assessment/Plan surgical recs pt s/p lap chon pain mgmt diet per surgery ppi fu labs Objective Last 24 Hour Vital Signs Date Time Temp Pulse Resp B/P Pulse Ox O2 Delivery O2 Flow Rate FiO2 05/19/16 08:00 97.0 86 20 102/76 99 Room Air 05/19/16 04:00 97.9 76 18 119/78 100 Room Air 05/19/16 00:00 97.0 74 18 114/74 97 Room Air 05/18/16 20:00 97.9 90 22 123/77 95 Room Air 05/18/16 16:00 97.5 89 20 118/77 99 Room Air Intake and Output 05/18/16 05/19/16 19:00 07:00 Intake Total 677.5 ml 800 ml Output Total 500 ml Balance 677.5 ml 300 ml Intake IV Total 127.5 ml 800 ml Other 550 ml Output Urine Total 500 ml # Voids 1 Laboratory Tests Test 05/19/16 05:25 White Blood Count 8.9 K/UL (4.8-10.8) Red Blood Count 4.52 M/UL (4.70-6.10) L Hemoglobin 15.7 G/DL (14.2-18.0) Hematocrit 43.5 % (42.0-52.0) Mean Corpuscular Volume 96 FL (80-99) Mean Corpuscular Hemoglobin 34.6 PG (27.0-31.0) H Mean Corpuscular Hemoglobin Concent 36.0 G/DL (32.0-36.0) Red Cell Distribution Width 10.7 % (11.6-14.8) L Platelet Count 208 K/UL (150-450) Mean Platelet Volume 5.6 FL (6.5-10.1) L Neutrophils (%) (Auto) 64.9 % (45.0-75.0) Lymphocytes (%) (Auto) 19.8 % (20.0-45.0) L Monocytes (%) (Auto) 11.5 % (1.0-10.0) H Eosinophils (%) (Auto) 3.2 % (0.0-3.0) H Basophils (%) (Auto) 0.7 % (0.0-2.0) Sodium Level 141 mEQ/L (135-145) Potassium Level 3.8 mEQ/L (3.4-4.9) Chloride Level 102 mEQ/L (98-107) Carbon Dioxide Level 28 mEQ/L (20-30) Anion Gap 11 (5-15) Blood Urea Nitrogen 5 mg/dL (7-23) L Creatinine 0.9 mg/dL (0.7-1.2) Estimat Glomerular Filtration Rate > 60 mL/min (>60) Glucose Level 122 mg/dL (74-106) H Calcium Level 9.1 mg/dL (8.6-10.2) Total Bilirubin 0.8 mg/dL (0.0-1.2) Aspartate Amino Transf (AST/SGOT) 18 U/L (5-40) Alanine Aminotransferase (ALT/SGPT) 28 U/L (3-41) Alkaline Phosphatase 61 U/L (40-129) Total Protein 7.0 g/dL (6.6-8.7) Albumin 4.0 g/dL (3.5-5.2) Globulin 3.0 g/dL Albumin/Globulin Ratio 1.3 (1.0-2.7) Height (Feet): 5 Height (Inches): 6.00 Weight (Pounds): 139 Objective pt in surgery for lap chon Leisa Aleman N.P. May 19, 2016 12:23
--- NOTE | 2016-05-19 12:25 | 48 Hour Post Anesthesia Eval ---
Post Anesthesia Evaluation Procedure: Lap Mercedes Date of Evaluation: May 19, 2016 Time of Evaluation: 13:48 Blood Pressure Systolic: 138 0: 75 Pulse Rate: 80 Respiratory Rate: 17 O2 Sat by Pulse Oximetry: 99 Airway: patent Nausea: No Vomiting: No Pain Intensity: 1 Hydration Status: adequate Cardiopulmonary Status: Stable Mental Status/LOC: patient returned to baseline Follow-up Care/Observations: As per surgery Post-Anesthesia Complications: No anesthetic complication Follow-up care needed: N/A DIAMANTE PAINTER M.D. May 19, 2016 12:25
--- NOTE | 2016-05-19 17:51 | Pulmonology Progress Note ---
Assessment/Plan Assessment/Plan Assessment/Plan ASSESSMENT Cholelithiasis Gallbladder wall thickening. r/o cholecystitis abdominal pain PLAN OF CARE Pain management IVF NPO CT A/P consistent with cholelithiasis with gallbladder wall thickening. surgery consult abdominal US and HIDA scan done Abd US - Cholelithiasis with gallbladder wall thickening measuring 1.1 cm. Cholecystitis not excluded. HIDA results pending empiric abx Subjective ROS Limited/Unobtainable: No Gastrointestinal/Abdominal: Reports: bloating, nausea, vomiting Allergies: Coded Allergies: No Known Allergies (Unverified , 10/22/15) Objective Last 24 Hour Vital Signs Date Time Temp Pulse Resp B/P Pulse Ox O2 Delivery O2 Flow Rate FiO2 05/19/16 16:23 97.9 86 19 118/73 100 Nasal Cannula 2.0 05/19/16 13:51 80 17 99 05/19/16 13:41 97.8 79 15 128/81 100 Nasal Cannula 3.0 05/19/16 13:35 76 16 126/82 100 Nasal Cannula 3.0 05/19/16 13:32 97.6 05/19/16 13:32 97.6 05/19/16 13:30 89 22 123/80 100 Nasal Cannula 3.0 05/19/16 13:15 78 15 133/89 100 Nasal Cannula 3.0 05/19/16 13:10 81 18 125/85 100 Nasal Cannula 3.0 05/19/16 13:00 78 17 140/98 100 Nasal Cannula 3.0 05/19/16 12:45 85 19 146/89 100 Simple Mask 6.0 05/19/16 12:40 72 18 148/96 100 Simple Mask 6.0 05/19/16 12:30 73 19 141/91 100 Simple Mask 6.0 05/19/16 12:25 78 20 144/89 100 Simple Mask 6.0 05/19/16 12:23 80 22 100 05/19/16 12:20 97.6 81 24 141/90 100 Simple Mask 6.0 05/19/16 08:00 97.0 86 20 102/76 99 Room Air 05/19/16 04:00 97.9 76 18 119/78 100 Room Air 05/19/16 00:00 97.0 74 18 114/74 97 Room Air 05/18/16 20:00 97.9 90 22 123/77 95 Room Air Intake and Output 05/18/16 05/19/16 19:00 07:00 Intake Total 677.5 ml 800 ml Output Total 500 ml Balance 677.5 ml 300 ml Intake IV Total 127.5 ml 800 ml Other 550 ml Output Urine Total 500 ml # Voids 1 General Appearance: WD/WN HEENT: normocephalic, atraumatic, PERRL Respiratory/Chest: chest wall non-tender, decreased breath sounds, accessory muscle use Cardiovascular: regular rhythm, tachycardia Abdomen: hyperactive bowel sounds, distended, guarding, tender, rebound tenderness, mass Genitourinary: normal external genitalia Extremities: no cyanosis Skin: no rash, no lesions Neurologic/Psychiatric: fuel cell engineer II-XII grossly normal, no motor/sensory deficits Laboratory Tests 05/19/16 05:25: White Blood Count 8.9, Red Blood Count 4.52L, Hemoglobin 15.7, Hematocrit 43.5, Mean Corpuscular Volume 96, Mean Corpuscular Hemoglobin 34.6H, Mean Corpuscular Hemoglobin Concent 36.0, Red Cell Distribution Width 10.7L, Platelet Count 208, Mean Platelet Volume 5.6L, Neutrophils (%) (Auto) 64.9, Lymphocytes (%) (Auto) 19.8L, Monocytes (%) (Auto) 11.5H, Eosinophils (%) (Auto) 3.2H, Basophils (%) ( Auto) 0.7, Sodium Level 141, Potassium Level 3.8, Chloride Level 102, Carbon Dioxide Level 28, Anion Gap 11, Blood Urea Nitrogen 5L, Creatinine 0.9, Estimat Glomerular Filtration Rate > 60, Glucose Level 122H, Calcium Level 9.1, Total Bilirubin 0.8, Aspartate Amino Transf (AST/SGOT) 18, Alanine Aminotransferase ( ALT/SGPT) 28, Alkaline Phosphatase 61, Total Protein 7.0, Albumin 4.0, Globulin 3.0, Albumin/Globulin Ratio 1.3 Current Medications Medications (Trade) Dose Ordered Sig/[place] Route PRN Reason Start Time Stop Time Status Last Admin Dose Admin Acetaminophen (Tylenol) 650 mg Q4H PRN ORAL FEVER 05/19/16 12:15 06/18/16 12:14 Acetaminophen/ Hydrocodone Bitart ([place] 5/325) 1 tab Q4H PRN ORAL Moderate Pain (Pain Scale 4-6) 05/19/16 12:15 05/26/16 12:14 Al Hydroxide/Mg Hydroxide (Mylanta II) 30 ml Q6H PRN ORAL dyspepsia 05/17/16 06:45 06/16/16 06:44 Dextrose STAT PRN IV Hypoglycemia 05/17/16 06:45 06/16/16 06:44 Dextrose/Sodium Chloride (D5 0.45% NS) 1,000 ml @ 100 mls/hr Q10H IV 05/17/16 22:45 06/16/16 22:44 05/19/16 07:48 Diphenhydramine HCl (Benadryl) 25 mg Q6H PRN ORAL Itching/Pruritis 05/17/16 06:45 06/16/16 06:44 Heparin Sodium (Porcine) (Heparin 5000 units/ml) 5,000 units EVERY 8 HOURS SUBQ 05/19/16 16:30 06/18/16 16:29 Hydromorphone HCl (Dilaudid) 0.5 mg Q3H PRN IVP Pain Score 1-3 05/19/16 12:15 05/26/16 12:14 Hydromorphone HCl (Dilaudid) 1 mg Q3H PRN IVP pain score 4-6 05/19/16 12:15 05/26/16 12:14 Hydromorphone HCl (Dilaudid) 2 mg Q3H PRN IVP pain score 7-10 05/19/16 12:15 05/26/16 12:14 Nitroglycerin (Ntg) 0.4 mg Q5M X 3 DOSES PRN SL Prn Chest Pain 05/17/16 06:45 06/16/16 06:44 Ondansetron HCl (Zofran) 4 mg Q6H PRN IVP Nausea & Vomiting 05/19/16 12:15 06/18/16 12:14 Piperacillin Sod/ Tazobactam Sod 3.375 gm/Sodium Chloride 110 ml @ 27.5 mls/hr EVERY 8 HOURS IVPB 05/17/16 14:00 05/24/16 13:59 05/19/16 14:07 Polyethylene Glycol (Miralax) 17 gm HSPRN PRN ORAL Constipation 05/17/16 06:45 06/16/16 06:44 Temazepam (Restoril) 15 mg HSPRN PRN ORAL Insomnia 05/17/16 06:45 05/24/16 06:44 05/19/16 01:18 LAINE MORRISON May 19, 2016 17:50
[2016-05-19] MEDS: HYDROmorphone 1mg/ml Carpuject IVP PRN ×2 (18:19→22:13)
--- NOTE | 2016-05-19 19:07 | Cardiology Report ---
APPROVED REPORT EKG Measurement Heart [id number] Normal sinus rhythm Rightward axis Pulmonary disease pattern Abnormal ECG
[2016-05-20] VITALS: BP 106/69
[2016-05-20] MEDS: HYDROmorphone 1mg/ml Carpuject IVP PRN (03:24)
[2016-05-20] MEDS: Piperacillin/Tazobactam 3.375 GM in NS 110 ML IVPB SCH ×2 (04:51→13:26)
[2016-05-20] MEDS: Heparin 5000 units/ml inj SUBQ SCH ×2 (06:00→13:26)
[2016-05-20 07:22] LABS: BASOPHILS % (AUTO) 0.6 % (0.0-2.0); EOSINOPHILS % (AUTO) 1.4 % (0.0-3.0); LYMPHOCYTES % (AUTO) 28.6 % (20.0-45.0); MEAN CORPUSCULAR HEMOGLOBIN 32.7 PG (27.0-31.0); MEAN CORPUSCULAR HGB CONC 34.6 G/DL (32.0-36.0); MEAN CORPUSCULAR VOLUME 94 FL (80-99); MEAN PLATELET VOLUME 5.9 FL (6.5-10.1); MONOCYTES % (AUTO) 11.8 % (1.0-10.0); NEUTROPHILS % (AUTO) 57.5 % (45.0-75.0); PLATELET COUNT 202 K/UL (150-450); RED BLOOD COUNT 4.47 M/UL (4.70-6.10); RED CELL DISTRIBUTION WIDTH 10.8 % (11.6-14.8); WHITE BLOOD COUNT 6.9 K/UL (4.8-10.8)
[2016-05-20 07:43] LABS: ANION GAP 11 (5-15); CALCIUM 8.5 mg/dL (8.6-10.2); CARBON DIOXIDE 29 mEQ/L (20-30); CHLORIDE 98 mEQ/L (98-107); CREATININE 0.8 mg/dL (0.7-1.2); GLOMERULAR FILTRATION RATE > 60 mL/min (>60); HEMOLYSIS 5; POTASSIUM 3.6 mEQ/L (3.4-4.9); SODIUM 138 mEQ/L (135-145)
[2016-05-20 08:00] VITALS: BP 131/89
--- NOTE | 2016-05-20 11:27 | General Surgery Progress Note ---
General Surgery-Progress Note Subjective Day of Surgery: 05/19/2016 Procedure Performed lap chon Symptoms: improved, tolerating diet, voiding well, passing flatus Additional Comments no n/v/f/c. doing well. recovering. Objective Last 24 Hour Vital Signs Date Time Temp Pulse Resp B/P Pulse Ox O2 Delivery O2 Flow Rate FiO2 05/20/16 08:00 98.1 81 22 131/89 100 Room Air 05/20/16 00:00 97.0 80 18 106/69 97 Room Air 05/19/16 20:00 99.5 87 19 120/71 97 Room Air 05/19/16 16:23 97.9 86 19 118/73 100 Nasal Cannula 2.0 05/19/16 13:51 80 17 99 05/19/16 13:41 97.8 79 15 128/81 100 Nasal Cannula 3.0 05/19/16 13:35 76 16 126/82 100 Nasal Cannula 3.0 05/19/16 13:32 97.6 05/19/16 13:32 97.6 05/19/16 13:30 89 22 123/80 100 Nasal Cannula 3.0 05/19/16 13:15 78 15 133/89 100 Nasal Cannula 3.0 05/19/16 13:10 81 18 125/85 100 Nasal Cannula 3.0 05/19/16 13:00 78 17 140/98 100 Nasal Cannula 3.0 05/19/16 12:45 85 19 146/89 100 Simple Mask 6.0 05/19/16 12:40 72 18 148/96 100 Simple Mask 6.0 05/19/16 12:30 73 19 141/91 100 Simple Mask 6.0 05/19/16 12:25 78 20 144/89 100 Simple Mask 6.0 05/19/16 12:23 80 22 100 05/19/16 12:20 97.6 81 24 141/90 100 Simple Mask 6.0 I&O Intake and Output 05/19/16 05/20/16 19:00 07:00 Intake Total 2150 ml 327.5 ml Output Total 10 ml 600 ml Balance 2140 ml -272.5 ml IV Total 2150 ml 327.5 ml Output Urine Total 600 ml Estimated Blood Loss 10 ml Dressing: dry Wound: clean, dry Drains: none Cardiovascular: RSR Respiratory: clear Abdomen: soft, non-tender, present bowel sounds Extremities: no edema Laboratory Tests Test 05/20/16 05:15 White Blood Count 6.9 K/UL (4.8-10.8) Red Blood Count 4.47 M/UL (4.70-6.10) L Hemoglobin 14.6 G/DL (14.2-18.0) Hematocrit 42.1 % (42.0-52.0) Mean Corpuscular Volume 94 FL (80-99) Mean Corpuscular Hemoglobin 32.7 PG (27.0-31.0) H Mean Corpuscular Hemoglobin Concent 34.6 G/DL (32.0-36.0) Red Cell Distribution Width 10.8 % (11.6-14.8) L Platelet Count 202 K/UL (150-450) Mean Platelet Volume 5.9 FL (6.5-10.1) L Neutrophils (%) (Auto) 57.5 % (45.0-75.0) Lymphocytes (%) (Auto) 28.6 % (20.0-45.0) Monocytes (%) (Auto) 11.8 % (1.0-10.0) H Eosinophils (%) (Auto) 1.4 % (0.0-3.0) Basophils (%) (Auto) 0.6 % (0.0-2.0) Sodium Level 138 mEQ/L (135-145) Potassium Level 3.6 mEQ/L (3.4-4.9) Chloride Level 98 mEQ/L (98-107) Carbon Dioxide Level 29 mEQ/L (20-30) Anion Gap 11 (5-15) Blood Urea Nitrogen 4 mg/dL (7-23) L Creatinine 0.8 mg/dL (0.7-1.2) Estimat Glomerular Filtration Rate > 60 mL/min (>60) Glucose Level 116 mg/dL (74-106) H Calcium Level 8.5 mg/dL (8.6-10.2) L Assessment Post-op Diagnosis POD #1 s/p lap chon for cholecystitis. afebrile, HD stable, recovering well. labs normal Plan Additional Comments okay to d/c home today from surgical standpoint diet as tolerated activity as tolerated - no lifting > 15lbs for 4 weeks okay to shower - no submersing in water for 2 weeks Rx: pain meds and stool softeners prn follow up with surgery in 1-2 weeks. call [phone] for appointment. Will Hathaway MD May 20, 2016 11:26
[2016-05-20 12:00] VITALS: BP 128/86
--- NOTE | 2016-05-20 13:43 | GI Progress Note ---
Assessment/Plan Problems: (1) Abdominal pain ICD Codes: R10.9 - Unspecified abdominal pain SNOMED: 89030214, 69605979 (2) Cholecystitis ICD Codes: K81.9 - Cholecystitis, unspecified SNOMED: 85313518, 20883676 Status: stable Status Narrative Discussed with Dr. Molina. Assessment/Plan ok for DC per GI standpoint surgical recs pt s/p lap chon pain mgmt diet advanced ppi fu labs Subjective Gastrointestinal/Abdominal: Reports: abdominal pain - improving Objective Last 24 Hour Vital Signs Date Time Temp Pulse Resp B/P Pulse Ox O2 Delivery O2 Flow Rate FiO2 05/20/16 12:00 97.7 84 21 128/86 97 Room Air 05/20/16 08:00 98.1 81 22 131/89 100 Room Air 05/20/16 00:00 97.0 80 18 106/69 97 Room Air 05/19/16 20:00 99.5 87 19 120/71 97 Room Air 05/19/16 16:23 97.9 86 19 118/73 100 Nasal Cannula 2.0 05/19/16 13:51 80 17 99 Intake and Output 05/19/16 05/20/16 19:00 07:00 Intake Total 2150 ml 327.5 ml Output Total 10 ml 600 ml Balance 2140 ml -272.5 ml IV Total 2150 ml 327.5 ml Output Urine Total 600 ml Estimated Blood Loss 10 ml Laboratory Tests Test 05/20/16 05:15 White Blood Count 6.9 K/UL (4.8-10.8) Red Blood Count 4.47 M/UL (4.70-6.10) L Hemoglobin 14.6 G/DL (14.2-18.0) Hematocrit 42.1 % (42.0-52.0) Mean Corpuscular Volume 94 FL (80-99) Mean Corpuscular Hemoglobin 32.7 PG (27.0-31.0) H Mean Corpuscular Hemoglobin Concent 34.6 G/DL (32.0-36.0) Red Cell Distribution Width 10.8 % (11.6-14.8) L Platelet Count 202 K/UL (150-450) Mean Platelet Volume 5.9 FL (6.5-10.1) L Neutrophils (%) (Auto) 57.5 % (45.0-75.0) Lymphocytes (%) (Auto) 28.6 % (20.0-45.0) Monocytes (%) (Auto) 11.8 % (1.0-10.0) H Eosinophils (%) (Auto) 1.4 % (0.0-3.0) Basophils (%) (Auto) 0.6 % (0.0-2.0) Sodium Level 138 mEQ/L (135-145) Potassium Level 3.6 mEQ/L (3.4-4.9) Chloride Level 98 mEQ/L (98-107) Carbon Dioxide Level 29 mEQ/L (20-30) Anion Gap 11 (5-15) Blood Urea Nitrogen 4 mg/dL (7-23) L Creatinine 0.8 mg/dL (0.7-1.2) Estimat Glomerular Filtration Rate > 60 mL/min (>60) Glucose Level 116 mg/dL (74-106) H Calcium Level 8.5 mg/dL (8.6-10.2) L Height (Feet): 5 Height (Inches): 6.00 Weight (Pounds): 139 General Appearance: no apparent distress, alert Cardiovascular: normal rate Respiratory/Chest: normal breath sounds Abdominal Exam: normal bowel sounds, non tender, soft Objective s/p lap Leisa Villa N.P. May 20, 2016 13:43
[2016-05-20] MEDS ORDERED: D5 1/2NS 1000ml IV ONE (14:09)
--- NOTE | 2016-05-20 15:54 | Diagnostic Imaging Report ---
Indication: ABD PAIN Technique: IV administration 6.84 mCi 99M technetium Choletec. Images obtained over the abdomen for 90 minutes Comparison: None Findings: There is prompt hepatic tracer uptake extrahepatic bile ducts are seen at 4 minutes. Activity within the duodenum is seen at 7 minutes. Activity within the gallbladder is seen as early as 10 minutes. Impression: Negative This agrees with the preliminary interpretation provided overnight by Dr. Mcmullen
--- NOTE | 2016-05-21 13:48 | Discharge Summary ---
Discharge Summary Hospital Course Date of Admission May 17, 2016 at 09:18 Date of Discharge May 20, 2016 at 14:10 Admitting Diagnosis cholecystitis HPI Ronny Cummins is a 36 year old male who was admitted on May 17, 2016 at 09: 18 for Cholecystitis Hospital Course dc summary dictated # [id number] Discharge Medications Discontinued Medications: Cephalexin* (Keflex*) 500 Mg Capsule 500 MG ORAL Q6H, #28 CAP Discharge Condition Upon Discharge: stable Discharge Disposition Patient was discharged to Home (01) Discharge Diagnoses: Mahad (Missylizeth),Georgina KINGSLEY May 21, 2016 13:48
--- NOTE | 2016-05-22 18:17 | Discharge Summary 2 SIG ---
DATE OF ADMISSION: 05/17/2016 DATE OF DISCHARGE: 05/20/2016 REASON FOR ADMISSION: 36-year-old male presented with abdominal pain for one day which was getting progressively worse. The pain radiated to the back , mainly concentrated in epigastric area. Quantified pain 7/10 on a scale 1 to 10. No prior episodes in the past. He also had associated nausea. No vomiting. No diarrhea. He denied fever or chills. Denies hematochezia, melena, hematemesis. He denied trauma or injury to the abdomen. CAT scan of the abdomen and pelvis done in the emergency room and revealed cholelithiasis with gallbladder wall thickening. There was no leukocytosis. Stable LFT. The patient was admitted for further workup. ADMITTING DIAGNOSES: 1. Cholelithiasis and gallbladder wall thickening. 2. Possible cholecystitis. 3. Abdominal pain. HOSPITAL COURSE: GI consult and surgery consults were requested. Surgeon seen patient on 05/17/2016 and ordered HIDA scan and abdominal ultrasound. Abdominal ultrasound revealed cholelithiasis, gallbladder wall thickening measuring 1.1 cm. Cholecystitis not excluded. Mild fatty infiltration of the liver. HIDA scan was negative. Surgeon decided to proceed with surgery since the ultrasound confirmed the presence of gallstones with thickening of the fundus of the gallbladder but no ductal dilatation and HIDA scan revealed patent cystic duct. LFT and CBC were within normal limit. Laparoscopic cholecystectomy was performed on 05/19/2016. Course of recovery was uneventful, initially on clear liquid diet, advanced to low fat, tolerated. Antiemetic provided as needed. Pain management provided. All laboratory work stable, LFT stable, no leukocytosis. Able to tolerate diet. No nausea. No vomiting. No fever. No chills. The patient was stable for discharge home. DISCHARGE DIAGNOSES: 1. Cholelithiasis. 2. Acute cholecystitis. 3. Status post laparoscopic cholecystectomy. 4. Abdominal pain secondary to acute cholecystitis, resolved. DISCHARGE MEDICATIONS: See medication reconciliation list.Pain management and stool softeners as needed. DISCHARGE INSTRUCTIONS: The patient discharged home. Followup with surgeon in 1 to 2 weeks, call for appointment. Low fat diet as tolerated. Activity as tolerated. No lifting more than 15 pounds for 4 weeks. Okay to shower but no submerging in water for two weeks. Jamie Soto M.D. Georgina Tobin N.P. (Vanchtein) DR: Jas JOB#: [id number] CC: MAIN
--- NOTE | 2016-05-23 08:47 | Operative Note - Dictated ---
DATE OF OPERATION: 05/19/2016 SURGEON: Goyo Perera M.D. ANESTHESIOLOGIST: Dwight Bowen M.D. PINION SORTER: Dr. Queen. PREOPERATIVE DIAGNOSIS: Acute cholecystitis. POSTOPERATIVE DIAGNOSIS: Acute cholecystitis. PROCEDURES: Laparoscopic cholecystectomy. INDICATION: This is a very pleasant gentleman, who had been admitted with episodes of right upper quadrant pain, nausea, and vomiting. The patient has had an ultrasound and a CT, both showing a very thick walled gallbladder and distention was felt. The patient has been started on intravenous antibiotics. He has been explained the indications for surgery, risks, benefits, and complications including bleeding, infection, anesthetic complications, possible need to convert to an open procedure, possible injury to the common duct or other structures, possible need for cholangiogram He understands above and agrees to proceed. OPERATIVE FINDINGS: The patient's gallbladder was markedly thickened. Cystic duct of normal size. The stomach, small bowel, and colon are partially visualized and all grossly normal. PROCEDURE IN DETAIL: The patient was identified in the preoperative holding area and the surgery was discussed. He was brought to the operating room and was induced under general anesthesia and an endotracheal intubation. The abdomen was prepped with Betadine and draped in a sterile manner. Time-out performed confirming the patient's position, procedure, anesthesia, antibiotic, and allergy status. An infraumbilical incision made, through which was passed a Veress needle, checked with irrigation, aspiration, water drip test, connected to a CO2 insufflator, inflated to 15 mmHg taking 4 liters to achieve this. The Veress needle was removed. The aperture was enlarged. A 5 mm trocar was placed through the abdominal cavity through which we passed a 30-degree laparoscope. The entire abdomen was then panscoped and then attention was focused to the right upper quadrant. Under laparoscopic vision, a second trocar was placed in subxiphoid position and two 5 mm trocars were placed in the right upper quadrant. through one of the lateral trocars a Grasper was used to grasp the fundus of the gallbladder elevated over the edge of the liver. This had required needle aspiration of the gallbladder contents because it was so thick and hard. After removing approximately 20 mL of fluid, the needle was removed and the grasper was then elevated over the edge of the liver. Using the grasper, the neck of the cystic duct was carefully dissected, cystic duct was clearly identified, and traced from the gallbladder to its junction with the common bile duct. It was triply clipped and divided. The cystic artery was similarly skeletonized and triply clipped and divided. Gallbladder was dissected free from the gallbladder fossa using a cautery and dissection, was placed in Endopouch bag, and delivered through the subxiphoid incision and sent to pathology for examination. At this point, the right upper quadrant was copiously irrigated with warm normal saline and the gallbladder fossa was carefully checked to make sure there is no active bleeding. Bleeding points were cauterized with electrocautery and strips of Surgicel gauze was placed in the gallbladder fundus once again and then the right upper quadrant further irrigated and aspirated. Then the scope was placed in the upper trocar and the entire abdomen once again panscoped to make sure there is no inadvertent bowel or blood vessel injury, none was seen. Under laparoscopic vision, the trocars were removed. Pneumoperitoneum released and the subxiphoid incision closed with #0 Vicryl on the fascia. The incision was closed with 4-0 Vicryl on the skin. Local infiltration with 20 mL of 0.5% Marcaine with epinephrine. Wounds were closed with Steri-Strips, 2 x 2s, and Tegaderm. Blood loss for the entire procedure was less than 20 mL. The patient tolerated the procedure well. Goyo Perera M.D. DR: WALE JOB#: [id number] CC: MAIN
== END 2016-05-20 14:10 | disposition home or self-care (01) | DRG 419 ==
LOC: EMR 03:12 → EDBEDREQ 09:13 → 3E 09:18
PROC: 0FT44ZZ Resection of Gallbladder, Percutaneous Endoscopic Approach (ICD-10-PCS; principal; 2016-05-19 11:00)
DX: K80.00 Calculus of gallbladder with acute cholecystitis without obstruction (principal); K40.90 Unilateral inguinal hernia, without obstruction or gangrene, not specified as recurrent
CPT/HCPCS: 36415; 74177; 76700; 78266; 80048; 80053; 80300; 81003; 82150; 83690; 84484; 85025; 85610; 85730; 86850; 86900; 86901; 93005; 94003; 94150; J2180; J2250; J2405

== ENCOUNTER 2017-08-10 05:39 | Day surgery (SDC) | payer BC ==
--- NOTE | 2017-08-09 22:00 | Pre-Procedure Note/Attestation ---
Pre-Procedure Note/Attestation Complete Prior to Procedure Planned Procedure: left Procedure Narrative: laparoscopic possible open left inguinal hernia repair with mesh Indications for Procedure Pre-Operative Diagnosis: left inguinal hernia Attestation I attest that I discussed the nature of the procedure; its benefits; risks and complications; and alternatives (and the risks and benefits of such alternatives ), prior to the procedure, with the patient (or the patient's legal aircraft sales representative). I attest that, if there was a reasonable possibility of needing a blood transfusion, the patient (or the patient's legal aircraft sales representative) was given the [facility] standardized written summary, pursuant to the [place] Blood Safety Act ([place] Health and Safety Code # 1645, as amended). I attest that I re-evaluated the patient just prior to the surgery and that there has been no change in the patient's H&P, except as documented below: Will Hathaway Aug 09, 2017 22:00
[2017-08-10] VITALS (14 sets, daily range): BP systolic 92–129; BP diastolic 49–85
[~2017-08-10] VITALS: Ht 170.2 cm; Wt 60.8 kg
[~2017-08-10 05:39] MED LIST changes: +ceFAZolin sod 2 GM in D5W 110 ML IV ONE
[2017-08-10] MEDS ORDERED: Dexamethasone 4mg/ml vial ONE (05:40)
[2017-08-10] MEDS ORDERED: Propofol 200mg/20ml IV ONE (05:40)
[2017-08-10] MEDS ORDERED: LR 1000ml ONE (05:40)
[2017-08-10] MEDS ORDERED: Midazolam 2mg/2ml Inj ONE (05:40)
[2017-08-10] MEDS ORDERED: Lidocaine 1% MPF 10mg/ml 5ml ONE (05:40)
[2017-08-10] MEDS ORDERED: fentaNYL 100 mcg/2 mL IV ONE (05:40)
[2017-08-10] MEDS ORDERED: Zemuron 50mg/5ml Inj IV ONE ×2 (05:40→07:27)
[2017-08-10] MEDS ORDERED: Ketorolac 60mg Inj ONE (05:40)
[2017-08-10] MEDS ORDERED: Bupivacaine 0.5% Inj 30 ml vial INJ ONE (07:01)
[2017-08-10] MEDS ORDERED: LR 1000ml 1,000 ML IVLG SCH (07:05)
--- NOTE | 2017-08-10 07:05 | Anethesia Preoperative Eval ---
Anesthesia Pre-op PMH/ROS General Date of Evaluation: Aug 10, 2017 Anesthesiologist: Tj ASA Score: ASA 2 Mallampati Score Class I : Soft palate, uvula, fauces, pillars visible Class II: Soft palate, uvula, fauces visible Class III: Soft palate, base of uvula visible Class IV: Only hard plate visible Mallampati Classification: Class II Surgeon: Mag Diagnosis: Left inguinal hernia Surgical Procedure: Left inguinal hernia repair Anesthesia History: none Family History: no anesthesia problems Allergies: Coded Allergies: No Known Allergies (Unverified , 10/22/15) Medications: see eMAR Past Medical History Cardiovascular: Denies: HTN, CAD, [place], valve dz, arrhythmia, other Pulmonary: Denies: asthma, COPD, JAY, other Gastrointestinal/Genitourinary: Reports: GERD; Denies: CRI, ESRD, other Neurologic/Psychiatric: Denies: dementia, CVA, depression/anxiety, TIA, other Endocrine: Denies: DM, hypothyroidism, steroids, other HEENT: Denies: cataract (L), cataract (R), glaucoma, [place] (L), [place] (R), other Hematology/Immune: Denies: anemia, DVT, bleeding disorder, other Musculoskeletal/Integumentary: Denies: OA, RA, DJD, DDD, edema, other PSxH Narrative: lap chon Anesthesia Pre-op Phys. Exam Physician Exam Last Vital Signs Date Time Temp Pulse Resp B/P (MAP) Pulse Ox O2 Delivery O2 Flow Rate FiO2 08/10/17 06:16 97.9 87 20 118/83 100 Room Air 97.9 Constitutional: NAD Cardiovascular: RRR Respiratory: CTA Airway Exam Mallampati Score: Class II MO: full ROM: full Teeth: intact Anesthesia Pre-op A/P Labs see chart Risk Assessment & Plan Assessment: ASA II Plan: GA Status Change Before Surgery: No Pre-Antibiotics Drug: Ancef 1g Given Within 1 Hr of Incision: Yes ROSAURA LUTZ M.D. Aug 10, 2017 07:05
[2017-08-10] MEDS ORDERED: Hydromorphone 0.5mg/0.5ml inj IVP PRN (07:15)
[2017-08-10] MEDS ORDERED: Midazolam 2mg/2ml Inj IVP PRN (07:15)
[2017-08-10] MEDS ORDERED: DiphenhydrAMINE 50mg/ml Inj IVP PRN (07:15)
[2017-08-10] MEDS ORDERED: Ketorolac 30mg Inj IV PRN (07:15)
[2017-08-10] MEDS ORDERED: fentaNYL 100 mcg/2 mL IV PRN (07:15)
[2017-08-10] MEDS ORDERED: Succinylcholine 20mg/ml 10ml vial ONE (07:27)
[2017-08-10] MEDS ORDERED: EPINEPHrine 1mg/1ml Amp IV ONE (08:00)
[2017-08-10] MEDS ORDERED: Bacitracin 50000 Units Vial IRRIG ONE (08:00)
--- NOTE | 2017-08-10 08:08 | Immediate Post-Op Evaluation ---
Immediate Post-Op Evalulation Immediate Post-Op Evalulation Procedure: Laparoscopic left inguinal hernia repair Date of Evaluation: Aug 10, 2017 Time of Evaluation: 09:49 IV Fluids: 1L Blood Products: 0 Estimated Blood Loss: min Urinary Output: 0 Blood Pressure Systolic: 93 Blood Pressure Diastolic: 53 Pulse Rate: 80 Respiratory Rate: 17 O2 Sat by Pulse Oximetry: 99 Temperature (Fahrenheit): 98.8 Pain Score (1-10): 0 Nausea: No Vomiting: No Complications 0 Patient Status: awake, reacts, patent, none Hydration Status: adequate Drug: Ancef 1g Given Within 1 Hr of Incision: Yes Time Given: 07:50 ROSAURA LUTZ M.D. Aug 10, 2017 08:08
--- NOTE | 2017-08-10 08:08 | 48 Hour Post Anesthesia Eval ---
Post Anesthesia Evaluation Procedure: Laparoscopic left inguinal hernia repair Date of Evaluation: Aug 10, 2017 Airway: patent Nausea: No Vomiting: No Pain Intensity: 0 Hydration Status: adequate Cardiopulmonary Status: at baseline Mental Status/LOC: patient returned to baseline Post-Anesthesia Complications: 0 Follow-up care needed: ready to discharge ROSAURA LUTZ M.D. Aug 10, 2017 08:08
--- NOTE | 2017-08-10 09:58 | Brief Operative Note ---
Immediate Post Operative Note Operative Note Pre-op Diagnosis: left inguinal hernia Procedure: laparoscopic left inguinal hernia repair with mesh Post-op Diagnosis: left direct inguinal hernia Post-op Diagnosis: same as pre-op Surgeon: avril Anesthesiologist: Tj Anesthesia: general, local Specimen: none Complications: none Condition: stable Fluids: see records Estimated Blood Loss: minimal Drains: none Implant(s) used?: Yes - bard left 3d mesh medium Will Hathaway Aug 10, 2017 09:58
[2017-08-10] MEDS ORDERED: Tylenol #3 tab (300mg/30mg) ORAL PRN (10:00)
[2017-08-10] MEDS ORDERED: D5 1/2NS 1,000 ML IV SCH (10:00)
[2017-08-10] MEDS ORDERED: Norco 5mg/325mg tab ORAL PRN (10:00)
[2017-08-10] MEDS ORDERED: HYDROmorphone 1mg/ml Carpuject SUBQ PRN (10:00)
--- NOTE | 2017-08-10 20:00 | Operative Note - Dictated ---
DATE OF OPERATION: 08/10/2017 PREOPERATIVE DIAGNOSIS: Left inguinal hernia. POSTOPERATIVE DIAGNOSIS: Left direct inguinal hernia. OPERATION PERFORMED: Laparoscopic left inguinal hernia repair with mesh. ATTENDING SURGEON: Will Hathaway M.D. AN/SSN 2 4 OPERATOR: None. ANESTHESIOLOGIST: Dr. Spencer. ANESTHESIA: General SIGNING AGENT. SPECIMENS: None. COMPLICATIONS: None. CONDITION: Stable. FLUIDS: Please see anesthesia records. ESTIMATED BLOOD LOSS: Minimal. DRAINS: None. IMPLANTS: A left-sided medium Bard 3D mesh was used. ANTIBIOTICS: Given one hour prior to cut time. COUNTS: Sponge and needle count correct x2. INDICATIONS FOR PROCEDURE: This is a 37-year-old male, who is seen as a referral for Dr. Hathaway for evaluation of a left groin bulge. The patient stated he had it for some time and was diagnosed with a left inguinal hernia, which has caused intermittent discomfort. On physical exam, the patient had a reproducible left inguinal hernia. Surgery was indicated and recommended. Risks, benefits, and alternatives were discussed with the patient in detail, who consented to laparoscopic possible open left inguinal hernia repair with mesh on 08/10/2017. OPERATIVE NOTE: The patient was taken to the operating room and placed on the operating table in supine position with bilateral arms out. All bony prominences were well padded. SCDs were placed. Antibiotic were given one hour prior to cut time. Preoperative time-out was taken in identifying the patient, procedure, operative staff, and surgical staff. General anesthesia was induced and the patient was intubated. The left arm was tucked. The abdomen was clipped, prepped, and draped in standard surgical fashion using ChloraPrep. A transverse incision was made above the umbilicus given the patient had a prior infraumbilical incision for lap choly. The fascia was identified and elevated and incised. Entry into the abdomen was identified using the open Jose technique without complication. A 12 mm Jose trocar was inserted and abdomen was insufflated to 12 to 15 mmHg. The patient tolerated the procedure well. Secondary trocars were then placed beginning with a 5 mm trocar in the left mid quadrant lateral to the rectus sheath and in the right mid quadrant lateral to the rectus sheath. Both inguinal regions were inspected and the medial umbilical ligament and the lateral umbilical folds were identified. On the right side, the patient had no hernias, but on the left side, the patient was noted to have a direct hernia, but no indirect hernia. The peritoneum on the left was incised with an endoscopic scissors along a line 2 cm below the superior edge of the hernia defect extending from the median umbilical ligament to the anterior superior iliac spine. Peritoneal flaps were mobilized inferiorly using sharp and blunt dissection as necessary. The inferior epigastric vessels were identified and spared. The Aime's ligament was then dissected to its junction with the iliac vein and dissection was continued inferiorly to the iliopubic tract with care to avoid injury to the femoral branch of the genitofemoral nerve and the lateral femoral cutaneous nerve. The cord structures were then identified and protected. During this time, mobilization of the direct sac was reduced and no indirect hernia was noted. Once reduction of hernia was identified, no other hernias were noted. Cord structures were safely protected and good visualization of the anatomic landmarks were noted. A Bard left-sided 3D medium-sized mesh was passed through the 12 mm trocar and entered into the abdomen and placed to completely cover the direct, indirect, and femoral spaces. The mesh was secured in place superiorly to the anterior abdominal wall and inferiorly to Aime's ligament using absorbable tacks. Care was taken to avoid the ileofemoral triangle containing the iliac vessels and the nerves. The peritoneal flaps were then closed over the mesh and secured with absorbable tacks in a similar fashion for safety. Ensuring adequate hemostasis, trocars were removed and pneumoperitoneum was allowed to desufflate. The umbilical fascia was closed using a [id number] #0 Vicryl suture and the remaining skin incisions were closed using a 4-0 Monocryl subcuticular suture. The wounds were cleaned and dressings were applied. The patient tolerated the procedure well, was extubated, and taken to the postanesthetic care unit in stable condition. Will Hathaway M.D. DR: JEANNETTE JOB#: [id number] CC:
== END 2017-08-10 13:45 | disposition home or self-care (01) ==
LOC: SUR 05:39
DX: K40.90 Unilateral inguinal hernia, without obstruction or gangrene, not specified as recurrent (principal); Z90.49 Acquired absence of other specified parts of digestive tract; Z91.011 Allergy to milk products; K21.9 Gastro-esophageal reflux disease without esophagitis; Z83.3 Family history of diabetes mellitus; Z82.49 Family history of ischemic heart disease and other diseases of the circulatory system
CPT/HCPCS: 49650; J0171; J0330; J0690; J1100; J1170; J2250; J2405; J2704; J3010; J3490; J7120

== ENCOUNTER 2018-05-16 08:02 | Emergency (ER) | payer BC ==
[~2018-05-16] VITALS: Ht 172.7 cm; Wt 64.9 kg
[~2018-05-16 08:02] MED LIST changes: -ceFAZolin sod 2 GM in D5W 110 ML IV ONE
[2018-05-16 08:10] VITALS: BP 132/86
--- NOTE | 2018-05-16 08:10 | NUR ---
ED Nurse Note: PT WALKED IN TO ER TODAY FROM HOME. AOX4. PT C/O UPPER ABDOMINAL PAIN, 6/10 X 4 DAYS AGO. PT ALSO C/O NAUSEA X THIS MORNING BUT DENIES ANY VOMITING OR DIARRHEA. PT STATES LAST BM X THIS MORNING WHICH WAS FORMED. ACTIVE BOWEL SOUNDS IN ALL QUADRANTS. ABDOMEN IS NONDISTENDED AND NONTENDER TO TOUCH.
[2018-05-16] MEDS ORDERED: Mylanta II UD 30ml ORAL ONE (08:30)
[2018-05-16] MEDS ORDERED: Dicyclomine HCl 10mg/5ml oral soln ORAL ONE (08:30)
[2018-05-16] MEDS ORDERED: Lidocaine 2% Visc 15ml soln ORAL ONE (08:30)
[2018-05-16 08:53] LABS: APPEARANCE,URINE CLEAR; BASOPHILS % (AUTO) 1.1 % (0.0-2.0); BILIRUBIN, URINE NEGATIVE (NEGATIVE); EOSINOPHILS % (AUTO) 2.6 % (0.0-3.0); GLUCOSE, URINE (UA) NEGATIVE (NEGATIVE); HEMATOCRIT 49.9 % (42.0-52.0); HEMOGLOBIN 17.7 G/DL (14.2-18.0); KETONES,URINE NEGATIVE (NEGATIVE); LEUKOCYTE ESTERASE ,URINE NEGATIVE (NEGATIVE); MEAN CORPUSCULAR VOLUME 93 FL (80-99); MONOCYTES % (AUTO) 9.2 % (1.0-10.0); NITRITE,URINE NEGATIVE (NEGATIVE); PH,URINE 7 (4.5-8.0); PLATELET COUNT 241 K/UL (150-450); PROTEIN,URINE NEGATIVE (NEGATIVE); RED BLOOD COUNT 5.35 M/UL (4.70-6.10); RED CELL DISTRIBUTION WIDTH 10.7 % (11.6-14.8); UROBILINOGEN,URINE NORMAL MG/DL (0.0-1.0); WHITE BLOOD COUNT 5.1 K/UL (4.8-10.8)
[2018-05-16 08:55] LABS: COLOR,URINE YELLOW
--- NOTE | 2018-05-16 08:57 | Emergency Room Report ---
History of Present Illness General Chief Complaint: Abdominal Pain Source: Patient Present Illness HPI Patient has a history of cholecystectomy. Patient also has a history of gastritis. Patient has a history of PVCs and has had extensive workup. Patient has had an endoscopy in the past a confirmed gastritis in the past was placed on Nexium. Patient states that he discontinue Nexium because he did not want to take it chronically. Over last couple days he has had epigastric pain similar to his gastritis flare. In addition he has had multiple PVCs although he denies any chest pain or shortness breath at this time. No other complaints are noted. Symptoms noted to be moderate to severe.No other modifying factors. No other associated signs and symptoms. No other complaints were noted. Allergies: Coded Allergies: No Known Allergies (Unverified , 10/22/15) Patient History Past Medical History: other - Gastritis Past Surgical History: chon Pertinent Family History: none Social History: Denies: smoking, alcohol use, drug use Reviewed Nursing Documentation: PMH: Agreed; PSxH: Agreed Nursing Documentation-PMH Hx Cardiac Problems: No - inguinal hernia repair(2019) Hx Cancer: No Hx Gastrointestinal Problems: Yes - Gastritis Hx Neurological Problems: No Review of Systems All Other Systems: negative except mentioned in HPI Physical Exam Vital Signs Date Time Temp Pulse Resp B/P (MAP) Pulse Ox O2 Delivery O2 Flow Rate FiO2 05/16/18 08:04 98.1 95 18 137/91 96 Room Air Sp02 EP Interpretation: reviewed, normal General Appearance: normal inspection, well appearing, no apparent distress, alert Head: atraumatic Eyes: bilateral eye normal inspection ENT: normal ENT inspection, hearing grossly normal, normal voice Neck: normal inspection, full range of motion, supple, no bony tend Respiratory: normal inspection, lungs clear, normal breath sounds, no respiratory distress, no retraction, no wheezing Cardiovascular #1: regular rate, rhythm, no edema Gastrointestinal: normal inspection, normal bowel sounds, soft, no guarding, no hernia, other - Tender epigastrium Genitourinary: no CVA tenderness Musculoskeletal: normal inspection, back normal, normal range of motion Neurologic: normal inspection, alert, responsive, speech normal Psychiatric: normal inspection, judgement/insight normal, mood/affect normal Skin: normal inspection, normal color, no rash Medical Decision Making Diagnostic Impression: Primary Impression: Gastritis Additional Impression: Heart palpitations ER Course .Patient presents to the emergency department today complaining of abdominal pain. Differential considerations include acute pancreatitis, gastritis, hepatitis, appendicitis just to name a few. Given the severity of the patient' s presentation I felt this is a highly complex patient. This patient required extensive workup. Patient laboratory workup was negative. Patient's symptoms improved with GI cocktail. Patient's EKG was normal. I feel the patient's symptoms are likely secondary to palpitations which patient has worked up before. Patient symptoms are likely secondary to gastritis which patient has had before. We'll put the patient back on Nexium recommend outpatient follow- up.Patient is advised to follow up with primary doctor in 2-3 days and return the emergency room for any worsening symptoms and as needed. Labs Test 05/16/18 08:34 White Blood Count 5.1 K/UL (4.8-10.8) Red Blood Count 5.35 M/UL (4.70-6.10) Hemoglobin 17.7 G/DL (14.2-18.0) Hematocrit 49.9 % (42.0-52.0) Mean Corpuscular Volume 93 FL (80-99) Mean Corpuscular Hemoglobin 33.0 PG (27.0-31.0) Mean Corpuscular Hemoglobin Concent 35.3 G/DL (32.0-36.0) Red Cell Distribution Width 10.7 % (11.6-14.8) Platelet Count 241 K/UL (150-450) Mean Platelet Volume 6.1 FL (6.5-10.1) Neutrophils (%) (Auto) 53.0 % (45.0-75.0) Lymphocytes (%) (Auto) 34.0 % (20.0-45.0) Monocytes (%) (Auto) 9.2 % (1.0-10.0) Eosinophils (%) (Auto) 2.6 % (0.0-3.0) Basophils (%) (Auto) 1.1 % (0.0-2.0) Urine Color Yellow Urine Appearance Clear Urine pH 7 (4.5-8.0) Urine Specific [place] 1.015 (1.005-1.035) Urine Protein Negative (NEGATIVE) Urine Glucose (UA) Negative (NEGATIVE) Urine Ketones Negative (NEGATIVE) Urine Blood Negative (NEGATIVE) Urine Nitrite Negative (NEGATIVE) Urine Bilirubin Negative (NEGATIVE) Urine Urobilinogen Normal MG/DL (0.0-1.0) Urine Leukocyte Esterase Negative (NEGATIVE) Sodium Level 141 MMOL/L (136-145) Potassium Level 3.8 MMOL/L (3.5-5.1) Chloride Level 103 MMOL/L (98-107) Carbon Dioxide Level 30 MMOL/L (21-32) Anion Gap 8 mmol/L (5-15) Blood Urea Nitrogen 13 mg/dL (7-18) Creatinine 1.0 MG/DL (0.55-1.30) Estimat Glomerular Filtration Rate > 60 mL/min (>60) Glucose Level 121 MG/DL (74-106) Calcium Level 9.7 MG/DL (8.5-10.1) Total Bilirubin 0.8 MG/DL (0.2-1.0) Aspartate Amino Transf (AST/SGOT) 37 U/L (15-37) Alanine Aminotransferase (ALT/SGPT) 98 U/L (12-78) Alkaline Phosphatase 71 U/L (46-116) Total Protein 8.3 G/DL (6.4-8.2) Albumin 4.3 G/DL (3.4-5.0) Globulin 4.0 g/dL Albumin/Globulin Ratio 1.1 (1.0-2.7) Lipase 125 U/L (73-393) EKG Diagnostic Results Rate: normal Rhythm: NSR ST Segments: no acute changes Rhythm Strip Diag. Results EP Interpretation: yes Rate: 81 Rhythm: NSR, no PVC's, no ectopy Last Vital Signs Date Time Temp Pulse Resp B/P (MAP) Pulse Ox O2 Delivery O2 Flow Rate FiO2 05/16/18 08:10 86 18 Room Air 05/16/18 08:10 98.3 132/86 98 Status: improved Disposition: HOME, SELF-CARE Condition: Stable Scripts Esomeprazole Magnesium (NEXIUM) 20 Mg Capsule. 20 MG ORAL DAILY for 14 Days, CAP Prov: Lamin Gonsalez MD 05/16/18 Lamin Gonsalez MD May 16, 2018 08:57
[2018-05-16 09:01] LABS: ANION GAP 8 mmol/L (5-15); BLOOD UREA NITROGEN 13 mg/dL (7-18); CALCIUM 9.7 MG/DL (8.5-10.1); CARBON DIOXIDE 30 MMOL/L (21-32); CHLORIDE 103 MMOL/L (98-107); POTASSIUM 3.8 MMOL/L (3.5-5.1); SODIUM 141 MMOL/L (136-145)
[2018-05-16 09:06] LABS: ALANINE AMINOTRANSFERASE 98 U/L (12-78); ALBUMIN 4.3 G/DL (3.4-5.0); ALBUMIN/GLOBULIN RATIO 1.1 (1.0-2.7); ALKALINE PHOSPHATASE 71 U/L (46-116); ASPARTATE AMINO TRANSFERASE 37 U/L (15-37); BILIRUBIN,TOTAL 0.8 MG/DL (0.2-1.0)
[2018-05-16] MEDS ORDERED: NEXIUM20 MG ORAL (09:20)
--- NOTE | 2018-05-16 09:26 | NUR ---
ED Nurse Note: PT LAYING PEACEFULLY IN BED IN NAD. AOX4. PRESCRIPTIONS AND DISCHARGE PAPERWORK EXPLAINED TO PT. PT VERBALIZES UNDERSTANDING AND ALL QUESTIONS WERE ANSWERED. PRESCRIPTIONS AND DISCHARGE PAPERWORK GIVEN TO PT, IV AND ID WRISTBAND REMOVED. PT WALKED OUT OF ER WITH STEADY GAIT AND ALL BELONGINGS.
[2018-05-16 09:27] VITALS: BP 125/76
--- NOTE | 2018-05-27 14:30 | Cardiology Report ---
APPROVED REPORT EKG Measurement Heart [id number] DC [id number] Normal sinus rhythm Rightward axis ST elevation, probably due to early repolarization Borderline ECG
== END 2018-05-16 09:28 | disposition home or self-care (01) ==
LOC: EMR 08:55
DX: K29.70 Gastritis, unspecified, without bleeding (principal); R00.2 Palpitations
CPT/HCPCS: 36415; 80053; 81003; 83690; 85025; 93005; 99283